=== PATIENT | male | born 1960 | race Caucasian/White ===

== ENCOUNTER 2022-02-06 17:15 | Emergency (ER) | payer SELFPAY ==
[2022-02-06 18:09] LABS: BASO # 0.05 K/mm3 (0.02-0.10); EOS # 0.09 K/mm3 (0.04-0.40); EOS % 0.9 % (0.0-4.0); HEMATOCRIT 36.9 % (42.0-52.0); HEMOGLOBIN 10.9 g/dL (13.5-18.0); MEAN CELL VOLUME 95 fl (78-100); MEAN CORPUSCULAR HEMOGLOBIN 28 pg (27-31); MEAN CORPUSCULAR HGB CONC 30 g/dL (33-37); MEAN PLATELET VOLUME 10.1 fl (7.4-10.4); MONO # 0.94 K/mm3 (0.20-0.80); NEU # 4.31 K/mm3 (1.40-6.50); PLATELET COUNT 171 K/mm3 (130-400); RED CELL DISTRIBUTION WIDTH 13.2 % (11.5-14.5); WHITE BLOOD COUNT 9.8 K/mm3 (4.8-10.8)
[2022-02-06 18:13] LABS: ALBUMIN 2.8 g/dL (3.5-5.0); POTASSIUM 3.7 mmol/L (3.5-5.1); SODIUM 147 mmol/L (136-145)
[2022-02-06 18:15] LABS: CALCIUM 9.7 mg/dL (8.3-10.5)
[2022-02-06 18:16] LABS: GLUCOSE 339 mg/dL (75-110); TOTAL PROTEIN 5.7 g/dL (6.4-8.3)
[2022-02-06 18:18] LABS: TOTAL BILIRUBIN 0.3 mg/dL (0.2-1.2)
[2022-02-06 18:21] LABS: AST-SGOT 655 U/L (5-34)
[2022-02-06 18:22] LABS: ALT/SGPT 662 U/L (0-55)
[2022-02-06 18:27] LABS: CARBON DIOXIDE 15 mmol/L (22-29)
[2022-02-06 18:30] LABS: TROPONIN-I < 0.030 ng/mL (<0.030)
[2022-02-06 22:10] VITALS: BP 00/00
== END 2022-02-06 22:10 | disposition expired ==
LOC: ED 17:34
PROVIDERS: Physician Assistant
DX: U07.1 COVID-19 (principal); I46.9 Cardiac arrest, cause unspecified
CPT/HCPCS: J0171; J0461